=== PATIENT | male | born 1980 | race Caucasian/White ===

== ENCOUNTER → 2019-09-01 | Outpatient (CLI) | payer OTHER | END | disposition home or self-care (01) | LOC: CFH 06:53 | PROVIDERS: ATTEND Internal Medicine | DX: K76.89 Other specified diseases of liver (principal); R10.11 Right upper quadrant pain; R10.13 Epigastric pain; F17.200 Nicotine dependence, unspecified, uncomplicated; Z88.0 Allergy status to penicillin | CPT/HCPCS: 76700 ==

== ENCOUNTER 2019-10-24 09:51 | Outpatient (CLI) | payer OTHER ==
[2019-10-24] MEDS ORDERED: SINCALIDE (KINEVAC) 5 MCG ONE (11:24)
== END 2019-10-24 23:59 | disposition home or self-care (01) ==
LOC: RAD 09:51
PROVIDERS: ATTEND Internal Medicine
DX: R10.11 Right upper quadrant pain (principal)
CPT/HCPCS: 78227; A9537; J2805

== ENCOUNTER 2020-02-10 08:00 | Outpatient (CLI) | payer OTHER ==
[2020-02-10] MEDS ORDERED: AZEL137S4 NAS (12:06)
[2020-02-10] MEDS ORDERED: FEXO1TAB25 PO (12:06)
[2020-02-10] MEDS ORDERED: FLUT9.9S NS (12:06)
[2020-02-10] MEDS ORDERED: VITAMIN PO (12:06)
[2020-02-10] MEDS ORDERED: GLUC500T11 PO (12:06)
[2020-02-10] MEDS ORDERED: MULT1TAB60 PO (12:06)
[2020-02-10] MEDS ORDERED: CYAN250013 PO (12:06)
[2020-02-10] MEDS ORDERED: Vitamin B6 PO (12:06)
[2020-02-10] MEDS ORDERED: IBUP-1223 PO (12:06)
== END 2020-02-10 23:59 | disposition home or self-care (01) ==
LOC: STAR 08:00
PROVIDERS: ATTEND Surgery
DX: Z01.812 Encounter for preprocedural laboratory examination (principal); U07.1 COVID-19; K83.9 Disease of biliary tract, unspecified
CPT/HCPCS: C9803; U0001

== ENCOUNTER 2020-04-01 05:16 | Day surgery (SDC) | payer OTHER ==
[~2020-04-01] VITALS: Ht 177.8 cm; Wt 83.2 kg
[~2020-04-01 05:16] MED LIST: AZEL137S4 NAS; CYAN250013 PO; FEXO1TAB25 PO; FLUT9.9S NS; GLUC500T11 PO; IBUP-1223 PO; MULT-449 PO; VITAMIN PO; Vitamin B6 PO
[2020-04-01] MEDS ORDERED: LACTATED RINGERS 1,000 ML IV SCH (06:16)
[2020-04-01] MEDS ORDERED: INDOCYANINE GREEN 25 MG VIAL ONE (06:25)
[2020-04-01] MEDS ORDERED: INDOCYANINE GREEN 25 MG VIAL IV ONE (06:30)
[2020-04-01] MEDS ORDERED: CHLORHEXIDINE 15 ML UDC MM ONE (06:30)
[2020-04-01] MEDS ORDERED: BUPIVACAINE/EPI 0.5% 1:200K ONE (06:35)
[2020-04-01 06:48] VITALS: BP 104/69
[2020-04-01] MEDS ORDERED: MIDAZOLAM 1 MG/ML, 2ML ONE (07:06)
[2020-04-01] MEDS ORDERED: FENTANYL PF 250 MCG/5ML ONE (07:07)
[2020-04-01] MEDS ORDERED: SCOPOLAMINE 1MG PATCH TD ONE (07:16)
[2020-04-01] MEDS ORDERED: ACETAMINOPHEN 500 MG TABLET ONE (07:16)
[2020-04-01] MEDS ORDERED: GABAPENTIN 300 MG CAPSULE ONE (07:16)
[2020-04-01] MEDS ORDERED: DEXAMETHASONE 4 MG/ML, 1ML ONE (07:30)
[2020-04-01] MEDS ORDERED: CEFAZOLIN 1,000 MG ONE (07:30)
[2020-04-01] MEDS ORDERED: ONDANSETRON 2MG/ML, 2ML ONE (07:30)
[2020-04-01] MEDS ORDERED: SCOPOLAMINE 1MG PATCH TD SCH (07:30)
[2020-04-01] MEDS ORDERED: ROCURONIUM 10 MG/ML,10ML ONE (07:30)
[2020-04-01] MEDS ORDERED: ACETAMINOPHEN 500 MG TABLET PO ONE (07:30)
[2020-04-01] MEDS ORDERED: PROPOFOL 10 MG/ML, 20ML ONE (07:30)
[2020-04-01] MEDS ORDERED: GABAPENTIN 300 MG CAPSULE PO ONE (07:30)
[2020-04-01] MEDS ORDERED: SUCCINYLCHOLINE 20 MG/ML, 10ML ONE (07:30)
[2020-04-01] MEDS ORDERED: FENTANYL PF 100 MCG/2ML ONE ×2 (08:47→09:24)
[2020-04-01] MEDS: FENTANYL PF 100 MCG/2ML IV PRN ×4 (08:49→09:37)
[2020-04-01] MEDS ORDERED: MEPERIDINE/PF 25MG/ML,1ML ONE (08:52)
[2020-04-01] MEDS ORDERED: OXYcodone 5 MG/5 ML ORAL.SOL UDC ONE (08:53)
[2020-04-01] MEDS ORDERED: HYDROmorphone 1 MG/ML, 1ML INJ IV PRN (09:00)
[2020-04-01] MEDS ORDERED: ALBUTEROL SULFATE 2.5 MG/3 ML NPPB PRN (09:00)
[2020-04-01] MEDS ORDERED: LABETALOL 5MG/ML, 20ML IV PRN ×2 (09:00)
[2020-04-01] MEDS ORDERED: MIDAZOLAM 1 MG/ML, 2ML IV PRN (09:00)
[2020-04-01] MEDS ORDERED: KETOROLAC 30 MG/1 ML IV PRN (09:00)
[2020-04-01] MEDS ORDERED: METOCLOPRAMIDE 5 MG/ML, 2ML IV PRN (09:00)
[2020-04-01] MEDS ORDERED: hydrALAzine 20 MG/ML, 1ML IV PRN ×2 (09:00)
[2020-04-01] MEDS ORDERED: FENTANYL PF 100 MCG/2ML IV PRN (09:00)
[2020-04-01] MEDS ORDERED: PROMETHAZINE 25 MG/ML, 1ML IV PRN (09:00)
[2020-04-01] MEDS ORDERED: HYDROmorphone 1 MG/ML, 1ML INJ IVPush PRN (09:00)
[2020-04-01] MEDS ORDERED: KETOROLAC 30 MG/1 ML IVPush PRN (09:00)
[2020-04-01] MEDS ORDERED: MEPERIDINE/PF 25MG/0.5ML IVPush PRN (09:00)
[2020-04-01] MEDS: MEPERIDINE/PF 25MG/0.5ML IVPush PRN ×2 (09:00→09:10)
[2020-04-01] MEDS ORDERED: OXYcodone 5 MG/5 ML ORAL.SOL UDC PO PRN ×2 (09:00)
[2020-04-01] MEDS ORDERED: ONDANSETRON 2MG/ML, 2ML IVPush PRN ×2 (09:00)
[2020-04-01] MEDS ORDERED: DIAZEPAM 5 MG/ML, 2ML IV PRN ×2 (09:00)
== END 2020-04-01 11:20 | disposition home or self-care (01) ==
LOC: OUT 05:16
PROVIDERS: ATTEND Surgery
DX: K82.8 Other specified diseases of gallbladder (principal); Z11.59 Encounter for screening for other viral diseases; K42.9 Umbilical hernia without obstruction or gangrene; K66.0 Peritoneal adhesions (postprocedural) (postinfection); Z88.1 Allergy status to other antibiotic agents
CPT/HCPCS: 47562; 88304; J0330; J0690; J1100; J2175; J2250; J2405; J2704; J3010; J7120; U0001